=== PATIENT | male | born 1940 | race Caucasian/White ===

== ENCOUNTER 2017-08-10 12:00 | Emergency (ER) | payer OTHER, MEDICARE ==
[~2017-08-10] VITALS: Ht 177.8 cm; Wt 83.5 kg
[2017-08-10 12:13] VITALS: BP 163/99; PULSE 55; RESP 18; TEMP 97.8; O2SAT 99
[2017-08-10 12:14] VITALS: BP 163/99; PULSE 62; RESP 16; TEMP 97.8; O2SAT 99
--- NOTE | 2017-08-10 12:23 | PD ---
HPI Chief Complaint: Respiratory Symptoms Time Seen by Provider: 12:12 Travel History International Travel<30 days: No Contact w/Intl Traveler<30days: No Traveled to known affect area: No History of Present Illness HPI 77-year-old male brought in by EMS from the [place] with about a week history of increasing shortness of breath with exertion. Patient has a history of 2 ablations in the past as well as CHF. Patient is also treated for COPD. She denies fever, chills, productive cough, but has had intermittent chest tightness in the front right chest. Patient denies significant abdominal distention or lower extremity edema. Patient does note similar resets difficulty passing his urine as he has history of BPH currently not treated with meds. Patient has required Ibrahim catheters in the past. Patient's doctors are in [place]. He came down to [facility] to go to the [place] clinic and sent here symptoms. Patient currently is not having any pain but has dyspnea at rest. Patient is allergic to atorvastatin, cilostazol, ezetimibe, lisinopril , and simvastatin. [facility] Social History Alcohol Use: Yes Tobacco Use: No (quit 7 years ago) Substance Use: No Allergies-Medications (Allergen,Severity, Reaction): Coded Allergies: atorvastatin (Verified Allergy, Severe, 08/10/17) MUSCLE PAIN cilostazol (Verified Allergy, Severe, Rash, 08/10/17) ezetimibe (Verified Allergy, Severe, Cramping, 08/10/17) lisinopril (Verified Allergy, Severe, Anaphylaxis, 08/10/17) simvastatin (Verified Allergy, Severe, Cramping, 08/10/17) CRAMP Reported Meds & Prescriptions Reported Meds & Active Scripts Active Azithromycin 500 Mg Tab 500 Mg PO DAILY Ventolin Hfa 18 GM Inh (Albuterol Sulfate) 90 Mcg/Act Aer 2 Puff INH Q4-6H PRN Prednisone 20 Mg Tab 20 Mg PO BID 7 Days Reported Mobic (Meloxicam) 15 Mg Tab 15 Mg PO DAILY Symbicort Inh (Budesonide/Formoterol Fumarate) 160-4.5 Mcg/Act Aero 2 Puff INH BID Amlodipine (Amlodipine Besylate) 5 Mg Tab 5 Mg PO DAILY Ventolin Hfa 18 GM Inh (Albuterol Sulfate) 90 Mcg/Act Aer 2 Puff INH Q6H PRN Prozac (Fluoxetine HCl) 20 Mg Cap 40 Mg PO HS Cozaar (Losartan Potassium) 50 Mg Tab 25 Mg PO HS Pravachol (Pravastatin) 80 Mg Tab 80 Mg PO HS Aspirin EC (Aspirin) 81 Mg Tabdr 81 Mg PO DAILY Review of Systems Except as stated in HPI: all other systems reviewed are Neg General / Constitutional: No: Fever, Chills Eyes: No: Visual changes HENT: No: Headaches Cardiovascular: Positive: Chest Pain or Discomfort (see history present illness ), Dyspnea on exertion, No: Palpitations, Irregular Rhythm, Tachycardia, Diaphoresis, Syncope, Varicosities, Edema, Cyanosis, Varicosities, Phlebitis, Claudication Respiratory: Positive: Cough, Shortness of Breath, No: Wheezing, Sneezing, Orthopnea, Hemoptysis, Stridor, Night Sweats, Pleuritic Pain Gastrointestinal: No: Nausea, Vomiting, Diarrhea, Abdominal Pain Genitourinary: No: Dysuria Musculoskeletal: No: Pain Skin: No Rash Neurologic: No: Weakness Psychiatric: No: Depression Endocrine: No: Polydipsia Hematologic/Lymphatic: No: Easy Bruising Physical Exam Narrative GENERAL: Patient appears dyspneic but in only mild respiratory distress. SKIN: Warm and dry. Normal color. Normal turgor. No diaphoresis. HEAD: Atraumatic. Normocephalic. EYES: Pupils equal and round. No scleral icterus. No injection or drainage. ENT: No nasal bleeding or discharge. Mucous membranes pink and moist. NECK: Trachea midline. Supple and nontender. CARDIOVASCULAR: Regular rate and rhythm. No murmurs gallops or rubs appreciated. RESPIRATORY: No accessory muscle use. Clear to auscultation. Breath sounds equal bilaterally. GASTROINTESTINAL: Abdomen soft, non-tender, nondistended. Hepatic and splenic margins not palpable. MUSCULOSKELETAL: Extremities without clubbing, cyanosis, or edema. No obvious deformities. NEUROLOGICAL: Awake and alert. No obvious cranial nerve deficits. Motor grossly within normal limits. Five out of 5 muscle strength in the arms and legs. Normal speech. PSYCHIATRIC: Appropriate mood and affect; insight and judgment normal. Data Data Last Documented VS Vital Signs Date Time Temp Pulse Resp B/P (MAP) Pulse Ox O2 Delivery O2 Flow Rate FiO2 08/10/17 13:04 59 20 171/73 (105) 99 Nasal Cannula 2.00 08/10/17 12:14 97.8 Orders Orders Complete Blood Count With Diff (08/10/17 12:23) Comprehensive Metabolic Panel (08/10/17 12:23) B-Type Natriuretic Peptide (08/10/17 12:23) Act Partial Throm Time (Ptt) (08/10/17 12:23) Prothrombin Time / Inr (Pt) (08/10/17 12:23) Magnesium (Mg) (08/10/17 12:23) Ckmb (Isoenzyme) Profile (08/10/17 12:23) Troponin I (08/10/17 12:23) Urinalysis - C+S If Indicated (08/10/17 12:23) Iv Access Insert/Monitor (08/10/17 12:23) Electrocardiogram (08/10/17 12:) Ecg Monitoring (08/10/17 12:23) Oximetry (08/10/17 12:) Oxygen Administration (08/10/17 12:23) Chest, Single Ap (08/10/17 12:23) Urinary Catheter Insert/Apply (08/10/17 12:23) Sodium Chloride 0.9% Flush (Ns Flush) (08/10/17 12:30) Albuterol-Ipratropium Neb (Duoneb Neb) (08/10/17 12:30) Furosemide Inj (Lasix Inj) (08/10/17 12:30) CKMB (08/10/17 12:30) CKMB% (08/10/17 12:30) Labs Laboratory Tests Test 08/10/17 12:30 08/10/17 12:35 White Blood Count 9.3 TH/MM3 Red Blood Count 4.82 MIL/MM3 Hemoglobin 13.8 GM/DL Hematocrit 41.0 % Mean Corpuscular Volume 85.1 FL Mean Corpuscular Hemoglobin 28.7 PG Mean Corpuscular Hemoglobin Concent 33.7 % Red Cell Distribution Width 14.0 % Platelet Count 320 TH/MM3 Mean Platelet Volume 6.5 FL Neutrophils (%) (Auto) 71.8 % Lymphocytes (%) (Auto) 16.2 % Monocytes (%) (Auto) 8.5 % Eosinophils (%) (Auto) 2.9 % Basophils (%) (Auto) 0.6 % Neutrophils # (Auto) 6.7 TH/MM3 Lymphocytes # (Auto) 1.5 TH/MM3 Monocytes # (Auto) 0.8 TH/MM3 Eosinophils # (Auto) 0.3 TH/MM3 Basophils # (Auto) 0.1 TH/MM3 CBC Comment DIFF FINAL Differential Comment Prothrombin Time 11.0 SEC Prothromb Time International Ratio 1.0 RATIO Activated Partial Thromboplast Time 28.3 SEC Blood Urea Nitrogen 10 MG/DL Creatinine 0.80 MG/DL Random Glucose 101 MG/DL Total Protein 7.3 GM/DL Albumin 3.6 GM/DL Calcium Level 9.0 MG/DL Magnesium Level 1.9 MG/DL Alkaline Phosphatase 49 U/L Aspartate Amino Transf (AST/SGOT) 19 U/L Alanine Aminotransferase (ALT/SGPT) 21 U/L Total Bilirubin 0.5 MG/DL Sodium Level 134 MEQ/L Potassium Level 4.0 MEQ/L Chloride Level 102 MEQ/L Carbon Dioxide Level 23.7 MEQ/L Anion Gap 8 MEQ/L Estimat Glomerular Filtration Rate 94 ML/MIN Total Creatine Kinase 121 U/L Creatine Kinase MB 2.4 NG/ML Troponin I LESS THAN 0.02 NG/ML B-Type Natriuretic Peptide 164 PG/ML Urine Color LIGHT-YELLOW Urine Turbidity CLEAR Urine pH 6.0 Urine Specific [place] 1.007 Urine Protein NEG mg/dL Urine Glucose (UA) NEG mg/dL Urine Ketones NEG mg/dL Urine Occult Blood NEG Urine Nitrite NEG Urine Bilirubin NEG Urine Urobilinogen LESS THAN 2.0 MG/DL Urine Leukocyte Esterase NEG Urine RBC LESS THAN 1 /hpf Urine WBC 1 /hpf Urine Hyaline Casts 1 /lpf Microscopic Urinalysis Comment CULT NOT INDICATED MDM Medical Decision Making Medical Screen Exam Complete: Yes Emergency Medical Condition: Yes Differential Diagnosis Electrolyte imbalance. Dyspnea. CHF. Cardiac syndrome. BPH. Urinary retention. Ascites Narrative Course Patient appears medically stable at time of exam. EKG shows sinus rhythm with first-degree AV block with occasional SVTs, otherwise unremarkable. This is reviewed with Dr. De Leon. Labs ordered including CBC, CMP, pro-BMP, cardiac panel, and urinalysis. Ibrahim catheter was placed. Patient is given 60 mg Lasix IV. Patient is given DuoNeb 1. CBC is unremarkable. CMP shows sodium 134 otherwise no acute findings. Troponin was less than 0.02. ProBNP was 164. Urinalysis is unremarkable. Coagulation studies are normal. Chest x-ray shows no acute process per radiologist. Patient is discussed with Dr. De Leon. Patient feels improved after his DuoNeb. Patient is felt to have a respiratory exacerbation of COPD versus cardiac issue based on our exam. Patient is felt to be stable for discharge home. Patient treated with azithromycin 500 mg daily for 5 days. Patient is given prednisone 20 mg twice a day 7 days. Patient is also given albuterol metered-dose inhaler 2 puffs every 4-6 hours when necessary. 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 Diagnosis Primary Impression: COPD with exacerbation Referrals: Primary Care Physician Patient Instructions: COPD (Chronic Obstructive Pulmonary Disease) (ED), Chronic Bronchitis (ED), General Instructions Additional Instructions: Patient is felt to have a respiratory exacerbation of COPD versus cardiac issue based on our exam. Patient is felt to be stable for discharge home. Patient treated with azithromycin 500 mg daily for 5 days. Patient is given prednisone 20 mg twice a day 7 days. Patient is also given albuterol metered-dose inhaler 2 puffs every 4-6 hours when necessary. 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 Med/Other Pt SpecificInfo: Prescription(s) given Scripts Azithromycin (Azithromycin) 500 Mg Tab 500 MG PO DAILY for Infection, #5 TAB 0 Refills Prov: Rivera De Leon MD 08/10/17 Albuterol 18 GM Inh (Ventolin Hfa 18 GM Inh) 90 Mcg/Act Aer 2 PUFF INH Q4-6H Y for SHORTNESS OF BREATH, #1 INHALER 0 Refills Prov: Rivera De Leon MD 08/10/17 Prednisone (Prednisone) 20 Mg Tab 20 MG PO BID for 7 Days, #14 TAB 0 Refills Prov: Rivera De Leon MD 08/10/17 Disposition: 01 DISCHARGE HOME Condition: Stable Yaron Humphrey Aug 10, 2017 12:23
[2017-08-10 12:26] VITALS: O2SAT 97
[2017-08-10] MEDS ORDERED: FUROSEMIDE 100 MG/10 ML VIAL IVP ONE ×2 (12:30)
[2017-08-10] MEDS ORDERED: SODIUM CHLORIDE 0.9% FLUSH 10 ML FLUSH IVF PRN ×2 (12:30)
[2017-08-10] MEDS ORDERED: RESP: ALBUTEROL 2.5 MG/IPRATROPIUM 0.5 MG NEB (SCH) INH ONE ×2 (12:30)
[2017-08-10 12:52] LABS: BILIRUBIN, URINE NEG (NEG); BLOOD, URINE NEG (NEG); GLUCOSE,URINE NEG (NEG); HYALINE CAST, URINE 1 /lpf (RARE); KETONE, URINE NEG (NEG); NITRITE,URINE NEG (NEG); URINE COLOR LIGHT-YELLOW (YELLW/STRAW); URINE LEUKOCYTE ESTERASE NEG (NEG)
[2017-08-10] MEDS ORDERED: PRAV80TA PO ×2 (12:53)
[2017-08-10] MEDS ORDERED: COZA50TA PO ×2 (12:53)
[2017-08-10] MEDS ORDERED: PROZ20CA11 PO ×2 (12:53)
[2017-08-10] MEDS ORDERED: SYMB160A INH ×2 (12:53)
[2017-08-10] MEDS ORDERED: VENTAER INH ×4 (12:53→13:50)
[2017-08-10] MEDS ORDERED: AMLO5TAB2 PO ×2 (12:53)
[2017-08-10] MEDS ORDERED: ASPI81TA11 PO ×2 (12:53)
[2017-08-10] MEDS ORDERED: MOBI15TA PO ×2 (12:53)
[2017-08-10 13:02] LABS: AUTOMATED NEUTROPHIL # 6.7 TH/MM3 (1.8-7.7); BASOPHIL # 0.1 TH/MM3 (0-0.2); BASOPHIL % 0.6 % (0.0-2.0); EOSINOPHIL # 0.3 TH/MM3 (0-0.4); EOSINOPHIL % 2.9 % (0.0-4.0); HEMOGLOBIN 13.8 GM/DL (13.0-17.0); LYMPH % 16.2 % (9.0-44.0); LYMPHOCYTE # 1.5 TH/MM3 (1.0-4.8); MEAN CELL VOLUME 85.1 FL (80.0-100.0); MEAN CORPUSCULAR HEMOGLOBIN 28.7 PG (27.0-34.0); MEAN CORPUSCULAR HGB CONC 33.7 % (32.0-36.0); MEAN PLATELET VOLUME 6.5 FL (7.0-11.0); MONO % 8.5 % (0.0-8.0); MONOCYTE # 0.8 TH/MM3 (0-0.9); NEUT % 71.8 % (16.0-70.0); PLATELET COUNT 320 TH/MM3 (150-450); RED BLOOD COUNT 4.82 MIL/MM3 (4.50-5.90); WHITE BLOOD COUNT 9.3 TH/MM3 (4.0-11.0)
[2017-08-10 13:04] VITALS: BP 171/73; PULSE 59; RESP 20; O2SAT 99
[2017-08-10 13:07] LABS: ALBUMIN 3.6 GM/DL (3.4-5.0); AST (GOT) 19 U/L (15-37); BICARBONATE 23.7 MEQ/L (21.0-32.0); BLOOD UREA NITROGEN 10 MG/DL (7-18); CHLORIDE 102 MEQ/L (98-107); GLOMERULAR FILTRATION RATE 94 ML/MIN (>89); GLUCOSE,RANDOM 101 MG/DL (74-106); MAGNESIUM 1.9 MG/DL (1.5-2.5); SODIUM (NA) 134 MEQ/L (136-145)
[2017-08-10 13:08] LABS: ALT (GPT) 21 U/L (12-78)
[2017-08-10 13:12] LABS: ALKALINE PHOSPHATASE 49 U/L (45-117); TOTAL BILIRUBIN ADULT 0.5 MG/DL (0.2-1.0); TOTAL PROTEIN 7.3 GM/DL (6.4-8.2); TROPONIN I LESS THAN 0.02 NG/ML (0.02-0.05)
[2017-08-10] MEDS ORDERED: PRED20 PO ×2 (13:50)
[2017-08-10] MEDS ORDERED: AZIT500T2 PO ×2 (13:50)
--- NOTE | 2017-08-10 13:55 | PD ---
Data Data Last Documented VS Vital Signs Date Time Temp Pulse Resp B/P (MAP) Pulse Ox O2 Delivery O2 Flow Rate FiO2 08/10/17 13:04 59 20 171/73 (105) 99 Nasal Cannula 2.00 08/10/17 12:14 97.8 Orders Orders Complete Blood Count With Diff (08/10/17 12:23) Comprehensive Metabolic Panel (08/10/17 12:23) B-Type Natriuretic Peptide (08/10/17 12:23) Act Partial Throm Time (Ptt) (08/10/17 12:23) Prothrombin Time / Inr (Pt) (08/10/17 12:23) Magnesium (Mg) (08/10/17 12:23) Ckmb (Isoenzyme) Profile (08/10/17 12:23) Troponin I (08/10/17 12:23) Urinalysis - C+S If Indicated (08/10/17 12:23) Iv Access Insert/Monitor (08/10/17 12:23) Electrocardiogram (08/10/17 12:23) Ecg Monitoring (08/10/17 12:23) Oximetry (08/10/17 12:23) Oxygen Administration (08/10/17 12:23) Chest, Single Ap (08/10/17 12:23) Urinary Catheter Insert/Apply (08/10/17 12:23) Sodium Chloride 0.9% Flush (Ns Flush) (08/10/17 12:30) Albuterol-Ipratropium Neb (Duoneb Neb) (08/10/17 12:30) Furosemide Inj (Lasix Inj) (08/10/17 12:30) CKMB (08/10/17 12:30) CKMB% (08/10/17 12:30) Labs Laboratory Tests Test 08/10/17 12:30 08/10/17 12:35 White Blood Count 9.3 TH/MM3 Red Blood Count 4.82 MIL/MM3 Hemoglobin 13.8 GM/DL Hematocrit 41.0 % Mean Corpuscular Volume 85.1 FL Mean Corpuscular Hemoglobin 28.7 PG Mean Corpuscular Hemoglobin Concent 33.7 % Red Cell Distribution Width 14.0 % Platelet Count 320 TH/MM3 Mean Platelet Volume 6.5 FL Neutrophils (%) (Auto) 71.8 % Lymphocytes (%) (Auto) 16.2 % Monocytes (%) (Auto) 8.5 % Eosinophils (%) (Auto) 2.9 % Basophils (%) (Auto) 0.6 % Neutrophils # (Auto) 6.7 TH/MM3 Lymphocytes # (Auto) 1.5 TH/MM3 Monocytes # (Auto) 0.8 TH/MM3 Eosinophils # (Auto) 0.3 TH/MM3 Basophils # (Auto) 0.1 TH/MM3 CBC Comment DIFF FINAL Differential Comment Prothrombin Time 11.0 SEC Prothromb Time International Ratio 1.0 RATIO Activated Partial Thromboplast Time 28.3 SEC Blood Urea Nitrogen 10 MG/DL Creatinine 0.80 MG/DL Random Glucose 101 MG/DL Total Protein 7.3 GM/DL Albumin 3.6 GM/DL Calcium Level 9.0 MG/DL Magnesium Level 1.9 MG/DL Alkaline Phosphatase 49 U/L Aspartate Amino Transf (AST/SGOT) 19 U/L Alanine Aminotransferase (ALT/SGPT) 21 U/L Total Bilirubin 0.5 MG/DL Sodium Level 134 MEQ/L Potassium Level 4.0 MEQ/L Chloride Level 102 MEQ/L Carbon Dioxide Level 23.7 MEQ/L Anion Gap 8 MEQ/L Estimat Glomerular Filtration Rate 94 ML/MIN Total Creatine Kinase 121 U/L Creatine Kinase MB 2.4 NG/ML Troponin I LESS THAN 0.02 NG/ML B-Type Natriuretic Peptide 164 PG/ML Urine Color LIGHT-YELLOW Urine Turbidity CLEAR Urine pH 6.0 Urine Specific [place] 1.007 Urine Protein NEG mg/dL Urine Glucose (UA) NEG mg/dL Urine Ketones NEG mg/dL Urine Occult Blood NEG Urine Nitrite NEG Urine Bilirubin NEG Urine Urobilinogen LESS THAN 2.0 MG/DL Urine Leukocyte Esterase NEG Urine RBC LESS THAN 1 /hpf Urine WBC 1 /hpf Urine Hyaline Casts 1 /lpf Microscopic Urinalysis Comment CULT NOT INDICATED MDM Supervised Visit with SARA: Yes Narrative Course The history, exam, and medical decision-making in the associated mid-level provider note were completed with my assistance. I reviewed and agree with the findings presented. I attest that I had a [id number] encounter with the patient on the same day, and personally performed and documented my assessment and findings in the medical record. *My assessment and Findings: 77-year-old man with history of COPD and heart failure. Looks well. Doesn't really look volume overloaded. URI symptoms for several days. [facility]. No respiratory distress. X-ray labs are unremarkable. Recommend treatment for COPD exacerbation likely bronchitis. Scripts Azithromycin (Azithromycin) 500 Mg Tab 500 MG PO DAILY for Infection, #5 TAB 0 Refills Prov: Rivera De Leon MD 08/10/17 Albuterol 18 GM Inh (Ventolin Hfa 18 GM Inh) 90 Mcg/Act Aer 2 PUFF INH Q4-6H Y for SHORTNESS OF BREATH, #1 INHALER 0 Refills Prov: Rivera De Leon MD 08/10/17 Prednisone (Prednisone) 20 Mg Tab 20 MG PO BID for 7 Days, #14 TAB 0 Refills Prov: Rivera De Leon MD 08/10/17 Condition: Stable Rivera De Leon MD Aug 10, 2017 13:55
[2017-08-10 14:00] VITALS: BP 142/100; PULSE 72; RESP 20; O2SAT 98
--- NOTE | 2017-08-10 14:19 | RADRPT ---
EXAM DATE/TIME: 08/10/2017 12:54 [facility] COMPARISON: No previous studies available for comparison. INDICATIONS : Short of breath. MEDICAL HISTORY : None. SURGICAL HISTORY : None. ENCOUNTER: Initial ACUITY: 1 day PAIN SCORE: 0/10 LOCATION: Bilateral chest FINDINGS: A single view of the chest demonstrates the lungs to be symmetrically aerated without evidence of mas s, infiltrate or effusion. The cardiomediastinal contours are unremarkable. Osseous structures are intact. CONCLUSION: No acute disease. Nicholas Vila MD on August 10, 2017 at 14:17 Board Certified Radiologist. This report was verified electronically.
[2017-08-10 15:00] VITALS: BP 138/79; PULSE 70; RESP 15; O2SAT 99
--- NOTE | 2017-08-10 21:17 | EKG ---
Date Performed: 08/10/2017 Time Performed: 12:14:29 PTAGE: 77 years EKG: Sinus rhythm WITH FIRST DEGREE AV BLOCK WITH OCCASIONAL SUPRAVENTRICULAR PREMATURE COMPLEXES ABNORMAL ECG NO PREVIOUS TRACING DOCTOR: Rolanda Bedolla Interpretating Date/Time 08/10/2017 21:17:10
== END 2017-08-10 15:30 | disposition home or self-care (01) ==
LOC: NEPC 12:00
DX: J44.1 Chronic obstructive pulmonary disease with (acute) exacerbation (principal); R94.31 Abnormal electrocardiogram [ECG] [EKG]; I50.9 Heart failure, unspecified
CPT/HCPCS: 51702; 71010; 80053; 81001; 82550; 82552; 83735; 83880; 84484; 85025; 85610; 85730; 93005; 94664; 96374; 99285; J1940